=== PATIENT | female | born 1955 | race Caucasian/White ===

== ENCOUNTER → 2016-10-17 | Outpatient (CLI) | payer BC ==
--- NOTE | 2016-10-17 08:22 | US ---
EXAMINATION TYPE: US abdomen complete DATE OF EXAM: 10/17/2016 8:07 AM COMPARISON: Previous study dated 09/20/2015. CLINICAL HISTORY: R68.81 EARLY SATIETY,R63.0 ANOREXIA,R10.10 UPPER ABD PAIN. Gb removed. Mid and aman n EXAM MEASUREMENTS: Liver Length: 15.4cm Gallbladder Wall: surgically removed CBD:surgically removed Spleen: 10.3 cm Right Kidney: 9.8 x 4.8 x 4.9 cm Left Kidney: 9.5 x 5.0 x 5.0 cm TECHNOLOGIST IMPRESSION: surgically removed gb, large body habitus overlying bowel gas Pancreas: large body habitus, portions seen wnl Liver: wnl Gallbladder: surgically removed Evidence for sonographic Loo's sign: surgically removed CBD: wnl Spleen: wnl Right Kidney: wnl Left Kidney: cysts largest 2.9 x 1.6 x 1.7 cm medial , mid cyst 1.7 x 1.2 x 2.1 cm, 2.0 x 1.6x 1.9 cm Upper IVC: wnl portions seen Abd Aorta: wnl portions seen The pancreas is poorly visualized. The liver is normal in size without evidence of biliary dilatation. It is mildly echogenic and I coul d not exclude some fatty infiltration. The gallbladder is been removed. Distal common hepatic duct measures 4.2 mm. The spleen is normal in size. The right kidney is normal. There are multiple hypoechoic lesions involving the left kidney. These do not meet the requirements f or simple cysts. Visualized portions of the aorta and IVC are normal. IMPRESSION: 1. POOR VISUALIZATION OF THE PANCREAS. 2. PROBABLE FATTY INFILTRATION OF THE LIVER. 3. STATUS POST CHOLECYSTECTOMY. 4. MULTIPLE HYPOECHOIC LESIONS IN THE LEFT KIDNEY WHICH DO NOT MEET THE REQUIREMENTS OF A SIMPLE CYST . FURTHER IMAGING WITH CT OR MR WOULD BE SUGGESTED.
--- NOTE | 2016-10-21 11:12 | MM ---
Reason for exam: screening (asymptomatic). Last mammogram was performed 1 year and 1 month ago. Physical Findings: A clinical breast exam by your physician is recommended on an annual basis and results should be correlated with mammographic findings. MG 3D Screening Mammo W/Cad Bilateral CC and MLO view(s) were taken. Prior study comparison: September 18, 2015, bilateral MG 3d screening mammo w/cad. August 23, 2014, bilateral MG screening mammo w CAD. October 05, 2012, bilateral digital screening mammo w/CAD. The breast tissue is heterogeneously dense. This may lower the sensitivity of mammography. There is chronic nodularity in the right breast laterally at a middle depth. Asymmetric density anterior right breast just medial to the retroareolar plane appears more defined and incompletely disperses on tomosynthesis. ASSESSMENT: Incomplete: need additional imaging evaluation, BI-RAD 0 RECOMMENDATION: Special view mammogram of the right breast. If lesion persists on supplemental views, image directed ultrasound is recommended. [facility] will attempt to contact patient to return for supplemental views and ultrasound if indicated.
== END | disposition home or self-care (01) ==
LOC: RADMAMWWP 07:30
PROVIDERS: ATTEND Family Medicine
DX: Z12.31 Encounter for screening mammogram for malignant neoplasm of breast (principal); N28.89 Other specified disorders of kidney and ureter; Z90.49 Acquired absence of other specified parts of digestive tract
CPT/HCPCS: 77063; 76700; G0202

== ENCOUNTER → 2016-10-23 | Outpatient (CLI) | payer BC ==
--- NOTE | 2016-10-23 08:21 | MM ---
Reason for exam: additional evaluation requested from abnormal screening. Last mammogram was performed less than 1 month ago. Physical Findings: Nurse did not find any significant physical abnormalities on exam. MG 3D Work Up W/Cad RT ML, spot compression CC, and spot compression MLO view(s) were taken of the right breast. Prior study comparison: October 17, 2016, bilateral MG 3d screening mammo w/cad. September 18, 2015, bilateral MG 3d screening mammo w/cad. August 23, 2014, bilateral MG screening mammo w CAD. The breast tissue is heterogeneously dense. This may lower the sensitivity of mammography. The questioned asymmetric densities show no persistence on spot tomosynthesis images or on the true lateral view. These results were verbally communicated with the patient and result sheet given to the patient on 10/23/16. ASSESSMENT: Negative, BI-RAD 1 RECOMMENDATION: Return to routine screening mammogram schedule for both breasts.
== END | disposition home or self-care (01) ==
LOC: RADMAMWWP 07:32
PROVIDERS: ATTEND Family Medicine
DX: R92.8 Other abnormal and inconclusive findings on diagnostic imaging of breast (principal)
CPT/HCPCS: G0206; G0279

== ENCOUNTER → 2016-11-13 | Outpatient (CLI) | payer BC ==
--- NOTE | 2016-11-13 12:23 | MR ---
MR abdomen with and without contrast HISTORY: Early satiety, cystic kidney, abnormal liver function tests or graph correlation to ultrasou nd abdomen 17 October 2016 Multiplanar multisequence and postcontrast images obtained through the abdomen following 15 cc MultiH ance IV The gallbladder is absent. There is no retroperitoneal adenopathy. Signal loss on out of phase imagin g within the liver is compatible with fatty infiltration. The spleen is enlarged. Liver is also enlar ged. 3 cortical cysts are seen on the left, the largest is anteriorly at the mid pole and measures 3.3 cm, smaller cysts in the upper pole as noted on ultrasound. Largest cortical cyst in the mid pole recycling manager iorly of the right kidney measures 3.0 cm. The cysts show no abnormal enhancement and are showing sim ple fluid with no wall thickening. No hydronephrosis bilaterally. There are contents within the stoma ch. Pancreas is within normal limits. There are no pleural effusions or ascites. Aorta shows normal caliber and contour. No evident dissect ion. IMPRESSION: Fatty infiltration of the liver with hepatomegaly. Post cholecystectomy. Simple cysts wit hin the kidneys. Splenomegaly. Additional findings above, contents are present within the stomach.
== END | disposition home or self-care (01) ==
LOC: RADMRIMAIN 10:50
PROVIDERS: ATTEND Physician Assistant
DX: N28.1 Cyst of kidney, acquired (principal); K76.0 Fatty (change of) liver, not elsewhere classified; R16.0 Hepatomegaly, not elsewhere classified; R16.1 Splenomegaly, not elsewhere classified; Z90.49 Acquired absence of other specified parts of digestive tract
CPT/HCPCS: 74183; A9577

== ENCOUNTER 2017-03-04 16:24 | Emergency (ER) | payer BC, OTHER ==
[2017-03-04] MEDS ORDERED: MECLIZINE 12.5 MG TAB PO STA (17:06)
[2017-03-04] MEDS ORDERED: ONDANSETRON 4 MG/2 ML VIAL IVP STA (17:06)
[2017-03-04] MEDS ORDERED: SODIUM CHLORIDE 0.9% 1,000 ML IV ONE (17:06)
[2017-03-04 17:40] LABS: Basophils % (A) 1 %; CH 31.6; CHCM 35.2; Eosinophils % (A) 1 %; HCT 38.4 % (34.0-46.0); HDW 2.53; Luc # (Auto) 0.04; Luc % (Auto) 1; Lymphocytes # (A) 1.1 k/uL (1.0-4.8); Lymphocytes % (A) 24 %; MCH 32.9 pg (25.0-35.0); MCHC 36.4 g/dL (31.0-37.0); MCV 90.3 fL (80.0-100.0); Monocytes # (A) 0.2 k/uL (0-1.0); Monocytes % (A) 5 %; Neutrophils # (A) 3.2 k/uL (1.3-7.7); Neutrophils % (A) 69 %; RBC 4.25 m/uL (3.80-5.40); RDW 12.9 % (11.5-15.5); WBC 4.7 k/uL (3.8-10.6); WBC (Perox) 4.51
--- NOTE | 2017-03-04 17:48 | XR ---
EXAMINATION TYPE: XR chest 2V DATE OF EXAM: 03/04/2017 COMPARISON: NONE HISTORY: Pain and nausea TECHNIQUE: Frontal and lateral views of the chest are obtained. FINDINGS: There is no focal air space opacity, pleural effusion, or pneumothorax seen. The cardiac silhouette size is within normal limits. Surgical clips present in the right upper quadrant. The os seous structures are intact. IMPRESSION: No acute cardiopulmonary process.
[2017-03-04 17:55] LABS: INR 1.1 (<1.1); Partial Thromboplastin Time 23.5 sec (22.0-30.0); Prothrombin Time 10.7 sec (9.0-12.0)
[2017-03-04 17:59] LABS: Anion Gap 14 mmol/L; Blood Urea Nitrogen 14 mg/dL (7-17); Calcium 9.5 mg/dL (8.4-10.2); Carbon Dioxide 22 mmol/L (22-30); Chloride 98 mmol/L (98-107); Glucose 325 mg/dL (74-99); Magnesium 1.6 mg/dL (1.6-2.3); Non-African American GFR(MDRD) >60 (>60 ml/min/1.73 sqM); Potassium 4.1 mmol/L (3.5-5.1); Sodium 134 mmol/L (137-145)
--- NOTE | 2017-03-04 18:28 | CT ---
EXAMINATION TYPE: CT brain wo con DATE OF EXAM: 03/04/2017 COMPARISON: NONE HISTORY: Patient complains of dizziness and right side arm tingling. CT DLP: 1011 mGycm Automated exposure control for dose reduction was used. Helical imaging through the brain FINDINGS: There is no hemorrhage or hydrocephalus. Mild cortical atrophy is likely age-related. The calvarium i s intact. Cerebral vascular calcifications are present. Paranasal sinuses and mastoid air cells as vi sualized are normal. IMPRESSION: NO ACUTE ABNORMALITY EVIDENT. CONSIDER BRAIN MRI INDICATED
[2017-03-04 18:55] LABS: Appearance,Urine Clear (Clear); Bacteria,Urine Rare /hpf; Bilirubin,Urine Negative (Negative); Glucose,Urine (UA) 4+ (Negative); Ketones,Urine 1+ (Negative); Leukocyte Esterase,Urine Small (Negative); Mucus,Urine Rare /hpf; Nitrite,Urine Negative (Negative); PH, Urine 5.5 (5.0-8.0); Particle Count 2014; Protein,Urine Negative (Negative); RBC,Urine 1 /hpf (0-5); Specific Gravity,Urine 1.007 (1.001-1.035); Squamous Epithelial Cell,Urine <1 /hpf (0-4); UA Billing (MACRO vs. MICRO) MICRO; Urobilinogen,Urine <2.0 mg/dL (<2.0); WBC,Urine 4 /hpf (0-5)
--- NOTE | 2017-03-04 19:04 | ED ---
General Adult HPI - General Chief complaint: Dizziness Stated complaint: Nausea,Dizzy,Tingling Arm Time Seen by Provider: 03/04/17 16:44 Source: patient Mode of arrival: wheelchair Limitations: no limitations - History of Present Illness Initial comments: Patient is a 61-year-old female with past medical history of vertigo who presents to the emergency department this evening for evaluation of vertiginous- like symptoms. Patient reports she woke this morning and upon walking she felt very dizzy, room spinning sensation which is similar to previous episodes of vertigo. The patient reports she's been evaluated for vertigo in the past, she was given meclizine in emergency department it is never been prescribed meclizine. Patient reports that throughout the day she has continued to experience a spinning sensation, this is worse with any turning of her head. This afternoon she developed significant nausea and has been unable to tolerate any by mouth intake. She reports she began feeling as though her hands were tingling and decided she needed to come to the emergency department for further evaluation. She denies any headache, recent head trauma, recent upper respiratory infection , change in vision or hearing. She denies any chest pain or shortness of breath. She has no known cardiac history. at bedside expresses concern that she may be having a stroke and/or a heart attack given that he has read that women can have symptoms of arm discomfort or tingling in the hands with heart attack. - Related Data Home Medications Medication Instructions Recorded Confirmed metFORMIN HCL [Glucophage] 1,000 mg PO BID 08/11/14 03/04/17 Aspirin 81 mg PO HS 03/04/17 03/04/17 Krill/Om-3/Dha/Epa/Phospho/Ast 1 cap PO DAILY 03/04/17 03/04/17 [[place]-3 Krill Oil 300 mg Sfgl] Pravastatin Sodium [Pravachol] 40 mg PO HS 03/04/17 03/04/17 Previous Rx's Medication Instructions Recorded Meclizine [Antivert] 25 mg PO TID #30 tab 03/04/17 Allergies Allergy/AdvReac Type Severity Reaction Status Date / Time amoxicillin Allergy Rash/Hives Verified 03/04/17 17:02 Review of Systems ROS Statement: Those systems with pertinent positive or pertinent negative responses have been documented in the HPI. ROS Other: All systems not noted in ROS Statement are negative. Constitutional: Denies: fever, chills Eyes: Denies: vision change ENT: Denies: hearing loss, congestion Respiratory: Denies: cough, dyspnea Cardiovascular: Denies: chest pain, palpitations, dyspnea on exertion, edema Endocrine: Denies: fatigue Gastrointestinal: Reports: nausea. Denies: vomiting, diarrhea, constipation Genitourinary: Denies: dysuria Musculoskeletal: Denies: back pain Skin: Denies: rash, lesions Neurological: Reports: paresthesias (Right upper extremity pinky and ring finger ), vertigo. Denies: headache, numbness Psychiatric: Denies: anxiety, depression Hematological/Lymphatic: Denies: easy bleeding, easy bruising Past Medical History Past Medical History: Diabetes Mellitus, Hyperlipidemia Additional Past Medical History / Comment(s): vertigo History of Any Multi-Drug Resistant Organisms: None Reported Past Surgical History: Cholecystectomy Additional Past Surgical History / Comment(s): cataracts Past Psychological History: No Psychological Hx Reported Smoking Status: Never smoker Past Alcohol Use History: Rare Past Drug Use History: None Reported General Exam Limitations: no limitations General appearance: alert, in no apparent distress Head exam: Present: atraumatic, normocephalic, normal inspection Eye exam: Present: normal appearance, PERRL, EOMI, nystagmus (Horizontal nystagmus with any lateral head movement). Absent: scleral icterus, conjunctival injection, periorbital swelling ENT exam: Present: normal exam, mucous membranes moist, TM's normal bilaterally Neck exam: Present: normal inspection. Absent: tenderness, meningismus, lymphadenopathy Respiratory exam: Present: normal lung sounds bilaterally. Absent: respiratory distress, wheezes, rales, rhonchi, stridor Cardiovascular Exam: Present: regular rate, normal rhythm, normal heart sounds. Absent: systolic murmur, diastolic murmur, rubs, gallop, clicks GI/Abdominal exam: Present: soft, normal bowel sounds. Absent: distended, tenderness, guarding, rebound, rigid Rectal exam: Present: deferred Extremities exam: Present: normal inspection, full ROM, normal capillary refill. Absent: tenderness, pedal edema, joint swelling, calf tenderness Neurological exam: Present: alert, oriented X3, CN II-XII intact Psychiatric exam: Present: normal affect, normal mood Skin exam: Present: warm Course Vital Signs 03/04/17 03/04/17 16:33 19:31 Temperature 97.2 F L 98.1 F Pulse Rate 73 66 Respiratory 20 18 Rate Blood Pressure 150/67 135/63 O2 Sat by Pulse 99 97 Oximetry - Reevaluation(s) Reevaluation #1: Patient reevaluated, reports significant improvement in her dizziness and resolution of her nausea after medications and IV fluids As also discussed with the patient who states she feels very comfortable being discharged home with Antivert 03/04/17 18:52 EKG Findings - EKG Comments: EKG Findings:: EKG evaluated at 1714. EKG with a normal sinus rhythm, rate of 76 normal intervals. [place] is 172, QRS is 90 QTc is 459. There is no acute ST elevations or depressions. There is no evidence of acute ischemia or infarction Medical Decision Making - Medical Decision Making She was seen and evaluated, vital signs were reviewed straight up obtained from patient and at bedside Physical exam with horizontal nystagmus on lateral movement of the head consistent with his additional vertigo Neuro examination otherwise unremarkable, normal heel mario, normal finger-nose IV fluids and meclizine were ordered Thorough TIA and cardiac workup were ordered given patient's concern that she may be having a cardiac event or a stroke EKG was unremarkable Chest x-ray unremarkable CT head without acute findings Labs with mild hypochloremia hyponatremia consistent with decreased by mouth intake throughout the day Patient reevaluated after IV fluids and meclizine reports complete resolution of the nausea and significant improvement in the vertigo. Patient states she feels nearly at her baseline and is comfortable with plan for discharge home. I advised patient she needs follow-up with her primary care physician by the end of the week or return to the ED for any acute worsening or development of new or concerning symptoms. Patient and at bedside express understanding and agreement with plan - Lab Data Result diagrams: 03/04/17 17:25 03/04/17 17:25 Lab Results 03/04/17 03/04/17 03/04/17 Range/Units 17:25 17:25 17:25 WBC 4.7 (3.8-10.6) k/uL RBC 4.25 (3.80-5.40) m/uL Hgb 14.0 (11.4-16.0) gm/dL Hct 38.4 (34.0-46.0) % MCV 90.3 (80.0-100.0) fL MCH 32.9 (25.0-35.0) pg MCHC 36.4 (31.0-37.0) g/dL RDW 12.9 (11.5-15.5) % Plt Count 90 L (150-450) k/uL Neutrophils % 69 % Lymphocytes % 24 % Monocytes % 5 % Eosinophils % 1 % Basophils % 1 % Neutrophils # 3.2 (1.3-7.7) k/uL Lymphocytes # 1.1 (1.0-4.8) k/uL Monocytes # 0.2 (0-1.0) k/uL Eosinophils # 0.0 (0-0.7) k/uL Basophils # 0.0 (0-0.2) k/uL PT (9.0-12.0) sec INR (<1.1) APTT (22.0-30.0) sec Sodium 134 L (137-145) mmol/L Potassium 4.1 (3.5-5.1) mmol/L Chloride 98 (98-107) mmol/L Carbon Dioxide 22 (22-30) mmol/L Anion Gap 14 mmol/L BUN 14 (7-17) mg/dL Creatinine 0.47 L (0.52-1.04) mg/dL Est GFR (MDRD) Af Amer >60 (>60 ml/min/1.73 sqM) Est GFR (MDRD) Non-Af >60 (>60 ml/min/1.73 sqM) Glucose 325 H (74-99) mg/dL Plasma Lactic Acid Steve 1.4 (0.7-2.0) mmol/L Calcium 9.5 (8.4-10.2) mg/dL Magnesium 1.6 (1.6-2.3) mg/dL Troponin I (0.000-0.034) ng/mL NT-Pro-B Natriuret Pep pg/mL Urine Color Urine Appearance (Clear) Urine pH (5.0-8.0) Ur Specific [place] (1.001-1.035) Urine Protein (Negative) Urine Glucose (UA) (Negative) Urine Ketones (Negative) Urine Blood (Negative) Urine Nitrite (Negative) Urine Bilirubin (Negative) Urine Urobilinogen (<2.0) mg/dL Ur Leukocyte Esterase (Negative) Urine RBC (0-5) /hpf Urine WBC (0-5) /hpf Ur Squamous Epith Cells (0-4) /hpf Urine Bacteria (None) /hpf Urine Mucus (None) /hpf 03/04/17 03/04/17 03/04/17 Range/Units 17:25 17:25 17:25 WBC (3.8-10.6) k/uL RBC (3.80-5.40) m/uL Hgb (11.4-16.0) gm/dL Hct (34.0-46.0) % MCV (80.0-100.0) fL MCH (25.0-35.0) pg MCHC (31.0-37.0) g/dL RDW (11.5-15.5) % Plt Count (150-450) k/uL Neutrophils % % Lymphocytes % % Monocytes % % Eosinophils % % Basophils % % Neutrophils # (1.3-7.7) k/uL Lymphocytes # (1.0-4.8) k/uL Monocytes # (0-1.0) k/uL Eosinophils # (0-0.7) k/uL Basophils # (0-0.2) k/uL PT 10.7 (9.0-12.0) sec INR 1.1 (<1.1) APTT 23.5 (22.0-30.0) sec Sodium (137-145) mmol/L Potassium (3.5-5.1) mmol/L Chloride (98-107) mmol/L Carbon Dioxide (22-30) mmol/L Anion Gap mmol/L BUN (7-17) mg/dL Creatinine (0.52-1.04) mg/dL Est GFR (MDRD) Af Amer (>60 ml/min/1.73 sqM) Est GFR (MDRD) Non-Af (>60 ml/min/1.73 sqM) Glucose (74-99) mg/dL Plasma Lactic Acid Steve (0.7-2.0) mmol/L Calcium (8.4-10.2) mg/dL Magnesium (1.6-2.3) mg/dL Troponin I <0.012 (0.000-0.034) ng/mL NT-Pro-B Natriuret Pep 15 pg/mL Urine Color Urine Appearance (Clear) Urine pH (5.0-8.0) Ur Specific [place] (1.001-1.035) Urine Protein (Negative) Urine Glucose (UA) (Negative) Urine Ketones (Negative) Urine Blood (Negative) Urine Nitrite (Negative) Urine Bilirubin (Negative) Urine Urobilinogen (<2.0) mg/dL Ur Leukocyte Esterase (Negative) Urine RBC (0-5) /hpf Urine WBC (0-5) /hpf Ur Squamous Epith Cells (0-4) /hpf Urine Bacteria (None) /hpf Urine Mucus (None) /hpf 03/04/17 Range/Units 18:31 WBC (3.8-10.6) k/uL RBC (3.80-5.40) m/uL Hgb (11.4-16.0) gm/dL Hct (34.0-46.0) % MCV (80.0-100.0) fL MCH (25.0-35.0) pg MCHC (31.0-37.0) g/dL RDW (11.5-15.5) % Plt Count (150-450) k/uL Neutrophils % % Lymphocytes % % Monocytes % % Eosinophils % % Basophils % % Neutrophils # (1.3-7.7) k/uL Lymphocytes # (1.0-4.8) k/uL Monocytes # (0-1.0) k/uL Eosinophils # (0-0.7) k/uL Basophils # (0-0.2) k/uL PT (9.0-12.0) sec INR (<1.1) APTT (22.0-30.0) sec Sodium (137-145) mmol/L Potassium (3.5-5.1) mmol/L Chloride (98-107) mmol/L Carbon Dioxide (22-30) mmol/L Anion Gap mmol/L BUN (7-17) mg/dL Creatinine (0.52-1.04) mg/dL Est GFR (MDRD) Af Amer (>60 ml/min/1.73 sqM) Est GFR (MDRD) Non-Af (>60 ml/min/1.73 sqM) Glucose (74-99) mg/dL Plasma Lactic Acid Steve (0.7-2.0) mmol/L Calcium (8.4-10.2) mg/dL Magnesium (1.6-2.3) mg/dL Troponin I (0.000-0.034) ng/mL NT-Pro-B Natriuret Pep pg/mL Urine Color Colorless Urine Appearance Clear (Clear) Urine pH 5.5 (5.0-8.0) Ur Specific [place] 1.007 (1.001-1.035) Urine Protein Negative (Negative) Urine Glucose (UA) 4+ H (Negative) Urine Ketones 1+ H (Negative) Urine Blood Negative (Negative) Urine Nitrite Negative (Negative) Urine Bilirubin Negative (Negative) Urine Urobilinogen <2.0 (<2.0) mg/dL Ur Leukocyte Esterase Small H (Negative) Urine RBC 1 (0-5) /hpf Urine WBC 4 (0-5) /hpf Ur Squamous Epith Cells <1 (0-4) /hpf Urine Bacteria Rare H (None) /hpf Urine Mucus Rare H (None) /hpf Disposition Clinical Impression: Vertigo Disposition: HOME SELF-CARE Condition: Good Instructions: Vertigo (ED), Dizziness (ED) Prescriptions: Meclizine [Antivert] 25 mg PO TID #30 tab Referrals: aSndra Davila III, MD [Primary Care Provider] - 1-2 days
[2017-03-04 19:36] VITALS: BP 135/63; PULSE 66; RESP 18; TEMP 98.1
== END 2017-03-04 19:32 | disposition home or self-care (01) ==
LOC: EC 16:24
DX: E87.1 Hypo-osmolality and hyponatremia (principal); E87.8 Other disorders of electrolyte and fluid balance, not elsewhere classified; R42 Dizziness and giddiness; R11.0 Nausea; R20.2 Paresthesia of skin; H55.09 Other forms of nystagmus; E78.5 Hyperlipidemia, unspecified; E11.9 Type 2 diabetes mellitus without complications; Z79.82 Long term (current) use of aspirin; Z79.84 Long term (current) use of oral hypoglycemic drugs; Z79.899 Other long term (current) drug therapy; Z88.0 Allergy status to penicillin
CPT/HCPCS: 36415; 93005; 83880; 80048; 83605; 83735; 84484; 85025; 85610; 85730; 81001; 71020; 70450; 99284; 96365; 96375; J2405

== ENCOUNTER → 2017-11-03 | Outpatient (CLI) | payer OTHER ==
--- NOTE | 2017-11-05 08:50 | MM ---
Reason for exam: screening (asymptomatic). Last mammogram was performed 1 year ago. Physical Findings: A clinical breast exam by your physician is recommended on an annual basis and results should be correlated with mammographic findings. MG 3D Screening Mammo W/Cad Bilateral CC and MLO view(s) were taken. Prior study comparison: October 23, 2016, right breast MG 3d work up w/cad RT. October 17, 2016, bilateral MG 3d screening mammo w/cad. The breast tissue is heterogeneously dense. This may lower the sensitivity of mammography. No significant changes when compared with prior studies. ASSESSMENT: Benign, BI-RAD 2 RECOMMENDATION: Routine screening mammogram of both breasts in 1 year.
== END | disposition home or self-care (01) ==
LOC: RADMAMWWP 16:52
PROVIDERS: ATTEND Family Medicine
DX: Z12.31 Encounter for screening mammogram for malignant neoplasm of breast (principal)
CPT/HCPCS: 77063; 77067

== ENCOUNTER → 2018-11-24 | Outpatient (CLI) | payer OTHER ==
--- NOTE | 2018-11-26 11:39 | MM ---
Reason for exam: screening (asymptomatic). Last mammogram was performed 1 year and 1 month ago. History: Patient is postmenopausal. Physical Findings: A clinical breast exam by your physician is recommended on an annual basis and results should be correlated with mammographic findings. MG 3D Screening Mammo W/Cad Bilateral CC and MLO view(s) were taken. Prior study comparison: November 03, 2017, bilateral MG 3d screening mammo w/cad. October 23, 2016, right breast MG 3d work up w/cad RT. The breast tissue is heterogeneously dense. This may lower the sensitivity of mammography. Finding: There are typically benign round, diffuse/scattered calcifications in both breasts. There is a chronic nodularity in the right breast. No significant changes in finding since November 03, 2017 and October 23, 2016. ASSESSMENT: Benign, BI-RAD 2 RECOMMENDATION: Routine screening mammogram of both breasts in 1 year.
== END | disposition home or self-care (01) ==
LOC: RADMAMWWP 16:37
PROVIDERS: ATTEND Family Medicine
DX: Z12.31 Encounter for screening mammogram for malignant neoplasm of breast (principal)
CPT/HCPCS: 77063; 77067

== ENCOUNTER 2019-02-25 23:04 | Emergency (ER) | payer OTHER ==
[2019-02-25 23:17] VITALS: TEMP 98.3
[2019-02-25] MEDS ORDERED: diphenhydrAMINE 50 MG/ML 1 ML VIAL IVP STA (23:36)
[2019-02-25] MEDS ORDERED: methylPREDNISolone SOD SUCCI 125 MG/2 ML VIAL IV STA (23:36)
[2019-02-25] MEDS ORDERED: FAMOTIDINE 20 MG/2 ML VIAL IV STA (23:36)
[2019-02-25] MEDS ORDERED: SODIUM CHLORIDE 0.9% 500 ML 500 ML IV ONE (23:36)
--- NOTE | 2019-02-26 00:16 | ED ---
Allergic Reaction HPI - General Chief complaint: Allergic Reaction Stated complaint: Allergic Reaction Time Seen by Provider: 02/25/19 23:24 Source: patient, family, RN notes reviewed, old records reviewed Mode of arrival: ambulatory Limitations: no limitations - History of Present Illness Initial Comments: Patient is a 63 year old female whom presents today for hives, and reports worsening hives over neck and face. She denies new exposures. She denies tongue swelling or difficulty breathing. Reports that her reaction may be related to you applying sunblock. She reports that she is using sunblock in the past. - Related Data Home Medications Medication Instructions Recorded Confirmed metFORMIN HCL [Glucophage] 1,000 mg PO BID 08/11/14 03/04/17 Aspirin 81 mg PO HS 03/04/17 03/04/17 Krill/Om-3/Dha/Epa/Phospho/Ast 1 cap PO DAILY 03/04/17 03/04/17 [[place]-3 Krill Oil 300 mg Sfgl] Pravastatin Sodium [Pravachol] 40 mg PO HS 03/04/17 03/04/17 Previous Rx's Medication Instructions Recorded Meclizine [Antivert] 25 mg PO TID #30 tab 03/04/17 Famotidine [Pepcid] 20 mg PO BID #20 tablet 02/26/19 diphenhydrAMINE [Benadryl] 25 mg PO QID PRN #20 capsule 02/26/19 predniSONE 10 mg PO DAILY #15 tab 02/26/19 Allergies Allergy/AdvReac Type Severity Reaction Status Date / Time amoxicillin Allergy Rash/Hives Verified 02/25/19 23:18 Review of Systems ROS Statement: Those systems with pertinent positive or pertinent negative responses have been documented in the HPI. ROS Other: All systems not noted in ROS Statement are negative. Past Medical History Past Medical History: Diabetes Mellitus, Hyperlipidemia Additional Past Medical History / Comment(s): vertigo History of Any Multi-Drug Resistant Organisms: None Reported Past Surgical History: Cholecystectomy Additional Past Surgical History / Comment(s): cataracts Past Psychological History: No Psychological Hx Reported Smoking Status: Former smoker Past Alcohol Use History: Rare Past Drug Use History: None Reported General Exam - General Exam Comments Initial Comments: Pleasant 63 year old female, no distress. Limitations: no limitations General appearance: alert, in no apparent distress Head exam: Present: atraumatic, normocephalic, normal inspection Eye exam: Present: normal appearance, PERRL, EOMI. Absent: scleral icterus, conjunctival injection, periorbital swelling ENT exam: Present: normal exam, mucous membranes moist Neck exam: Present: normal inspection. Absent: tenderness, meningismus, lymphadenopathy Respiratory exam: Present: normal lung sounds bilaterally. Absent: respiratory distress, wheezes, rales, rhonchi, stridor Cardiovascular Exam: Present: regular rate, normal rhythm, normal heart sounds. Absent: systolic murmur, diastolic murmur, rubs, gallop, clicks GI/Abdominal exam: Present: soft, normal bowel sounds. Absent: distended, tende rness, guarding, rebound, rigid Extremities exam: Present: normal inspection, full ROM, normal capillary refill. Absent: tenderness, pedal edema, joint swelling, calf tenderness Back exam: Present: normal inspection Skin exam: Present: warm, dry, intact, normal color, urticaria (hives over arms, chest, back and neck. ). Absent: rash Course Vital Signs 02/25/19 02/26/19 23:13 00:29 Temperature 98.3 F Pulse Rate 98 72 Respiratory 18 19 Rate Blood Pressure 162/97 129/79 O2 Sat by Pulse 97 72 L Oximetry Medical Decision Making - Medical Decision Making 63 year old female for hives and allergic reaction, likely to sunblock. Given IV solumedrol, benadryl, and pepcid. Hives have diminished, no sign of respiratory distress or angioedema. Will DC with Rx for prednisone. Discussed patient follow up with PCP and to avoid new exposures. Patient understands treatment plan and will comply. Disposition Clinical Impression: Urticaria Disposition: HOME SELF-CARE Condition: Good Instructions (If sedation given, give patient instructions): Urticaria (ED), General Allergic Reaction (ED) Additional Instructions: Take the medication as prescribed. Monitor for any signs of difficulty breathing. Patient should avoid hot showers's that we'll make the hives worse. Take the steroids for the next 5 days as prescribed. Prescriptions: diphenhydrAMINE [Benadryl] 25 mg PO QID PRN #20 capsule PRN Reason: Itching Famotidine [Pepcid] 20 mg PO BID #20 tablet predniSONE 10 mg PO DAILY #15 tab Is patient prescribed a controlled substance at d/c from ED?: No Referrals: Sandra Davila III, MD [Primary Care Provider] - 1-2 days Time of Disposition: 00:13
[2019-02-26 00:30] VITALS: BP 129/79; PULSE 72; RESP 19
== END 2019-02-26 00:29 | disposition home or self-care (01) ==
LOC: EC 23:04
DX: L50.0 Allergic urticaria (principal); E11.9 Type 2 diabetes mellitus without complications; E78.5 Hyperlipidemia, unspecified; Z87.891 Personal history of nicotine dependence; Z88.0 Allergy status to penicillin; Z79.82 Long term (current) use of aspirin; Z79.84 Long term (current) use of oral hypoglycemic drugs; Z79.899 Other long term (current) drug therapy
CPT/HCPCS: 99283; 96374; 96375 ×2; 96361; J1200; J2930

== ENCOUNTER → 2019-06-01 | Outpatient (CLI) | payer OTHER ==
--- NOTE | 2019-06-01 11:02 | US ---
EXAMINATION TYPE: US abdomen complete DATE OF EXAM: 06/01/2019 COMPARISON: Abdominal ultrasound dated 10/17/2016 CLINICAL HISTORY: R94.5 ABN LIVER FUNCTIONS. EXAM MEASUREMENTS: Liver Length: 16.3 cm Gallbladder Wall: Surgically absent CBD: 0.5 cm Spleen: 13.4 cm Right Kidney: 10.1 x 4.6 x 4.9 cm Left Kidney: 9.6 x 6.5 x 5.2 cm Pancreas: partially obscured by bowel gas, portions visualized wnl Liver: There is increased echogenicity of the hepatic parenchyma with diminished visualization of th e portal triads most commonly relating to hepatic steatosis and limiting evaluation for underlying he patic masses. Gallbladder: Surgically absent Evidence for sonographic Loo's sign: No CBD: wnl Spleen: Approaches criteria for splenomegaly. Right Kidney: cyst measuring 2.5 x 2.8 x 2.6cm Left Kidney: cyst measuring 2.2 x 3.5 x 2.4cm Upper IVC: wnl Abd Aorta: partially obscured by bowel gas, portions visualized wnl The intrahepatic portion of the IVC and proximal abdominal aorta are within normal limits. Common braulio e duct is unremarkable. The visualized portions of the pancreas are homogenous. The spleen is upper limits of normal size. Kidneys are symmetric and free of hydronephrosis. No suspicious renal lesio ns are seen. IMPRESSION: 1. Sonographic findings most commonly related to hepatic steatosis. Correlate with liver function cinthya t results. 2. Spleen approaches criteria for splenomegaly measuring 13.47 m. 3. Partial obscuration of the aorta and pancreas. Surgical absence of the gallbladder. 4. Bilateral renal cysts.
== END | disposition home or self-care (01) ==
LOC: RADUSWWP 09:19
PROVIDERS: ATTEND Family Medicine
DX: K76.0 Fatty (change of) liver, not elsewhere classified (principal); R16.1 Splenomegaly, not elsewhere classified; Z90.49 Acquired absence of other specified parts of digestive tract; N28.1 Cyst of kidney, acquired; K86.89 Other specified diseases of pancreas
CPT/HCPCS: 76700

== ENCOUNTER → 2020-03-13 | Outpatient (CLI) | payer OTHER ==
--- NOTE | 2020-03-13 09:46 | BD ---
EXAMINATION TYPE: Axial Bone Density DATE OF EXAM: 03/13/2020 COMPARISON: NONE CLINICAL HISTORY: Height: 61.5 IN Weight: 181 LBS RISK FACTORS HISTORY OF: Active: YES Diet low in dairy products/other sources of calcium: YES Postmenopausal woman: AGE 55 MEDICATIONS: Additional Medications: VIT D, METFORMIN, PRAVASTATIN,ACTOS,DIABETES MED EXAM MEASUREMENTS: Bone mineral densitometry was performed using the [employer] System. Bone mineral density as measured about the Lumbar spine is: ----- L1-L4(G/cm2): 1.140 T Score Values are as follows: ----- L2: -1.1 ----- L3: 0.1 ----- L4: 0.3 ----- L1-L4: -0.3 Bone mineral density BASELINE Bone mineral density about the R hip (g/cm2): 0.926 Bone mineral density about the L hip (g/cm2): 0.906 T Score values are as follows: -----R Neck: -0.8 -----L Neck: -0.9 -----R Total: 0.1 -----L Total: 0.1 Bone mineral density BASELINE IMPRESSION: Normal (Values between +1 and -1 indicate normal bone mass). Consider repeating this study in 5 year s or sooner if there is some new clinical indication. Borderline osteopenia detected just within the L2 vertebral body NOTE: T-SCORE=SD OF THE YOUNG ADULT MEAN.
--- NOTE | 2020-03-15 07:43 | MM ---
Reason for exam: screening (asymptomatic). Last mammogram was performed 1 year and 4 months ago. History: Patient is postmenopausal. Physical Findings: A clinical breast exam by your physician is recommended on an annual basis and results should be correlated with mammographic findings. MG 3D Screening Mammo W/Cad Bilateral CC and MLO view(s) were taken. Prior study comparison: November 24, 2018, bilateral MG 3d screening mammo w/cad. November 03, 2017, bilateral MG 3d screening mammo w/cad. The breast tissue is heterogeneously dense. This may lower the sensitivity of mammography. No significant changes when compared with prior studies. ASSESSMENT: Benign, BI-RAD 2 RECOMMENDATION: Routine screening mammogram of both breasts in 1 year.
== END | disposition home or self-care (01) ==
LOC: RADMAMWWP 08:02
PROVIDERS: ATTEND Family Medicine
DX: Z12.31 Encounter for screening mammogram for malignant neoplasm of breast (principal); Z13.820 Encounter for screening for osteoporosis; M85.88 Other specified disorders of bone density and structure, other site
CPT/HCPCS: 77063; 77067; 77080

== ENCOUNTER → 2021-04-03 | Outpatient (CLI) | payer OTHER ==
--- NOTE | 2021-04-05 11:23 | MM ---
Reason for exam: screening (asymptomatic). Last mammogram was performed 1 year and 1 month ago. History: Patient is postmenopausal. Physical Findings: A clinical breast exam by your physician is recommended on an annual basis and results should be correlated with mammographic findings. MG 3D Screening Mammo W/Cad Bilateral CC and MLO view(s) were taken. Prior study comparison: March 13, 2020, bilateral MG 3d screening mammo w/cad. November 24, 2018, bilateral MG 3d screening mammo w/cad. The breast tissue is heterogeneously dense. This may lower the sensitivity of mammography. No significant changes when compared with prior studies. ASSESSMENT: Benign, BI-RAD 2 RECOMMENDATION: Routine screening mammogram of both breasts in 1 year.
== END | disposition home or self-care (01) ==
LOC: RADMAMWWP 12:47
PROVIDERS: ATTEND Family Medicine
DX: Z12.31 Encounter for screening mammogram for malignant neoplasm of breast (principal); Z78.0 Asymptomatic menopausal state
CPT/HCPCS: 77063; 77067

== ENCOUNTER → 2022-04-10 | Outpatient (CLI) | payer BC ==
--- NOTE | 2022-04-11 07:56 | MM ---
Reason for Exam: Screening (asymptomatic). Last screening mammogram was performed 12 month(s) ago. Patient History: Menarche at age 14. First Full-Term at age 24. Postmenopausal. Risk Values: Kathy 5 year model risk: 1.4%. NCI Lifetime model risk: 5.8%. Prior Study Comparison: 11/24/2018 Bilateral Screening Mammogram, [facility]. 03/13/2020 Bilateral Screening Mammogram, [facility]. 04/03/2021 Bilateral Screening Mammogram, [facility]. Tissue Density: The breast tissue is heterogeneously dense. This may lower the sensitivity of mammography. Findings: Analyzed By CAD. There is no suspicious group of microcalcifications or new suspicious mass in either breast. Stable benign calcifications. Overall Assessment: Benign, BI-RAD 2 Management: Screening Mammogram of both breasts in 1 year. A clinical breast exam by your physician is recommended on an annual basis and results should be correlated with mammographic findings. Electronically signed and approved by: Carmelo Gallo M.D. Radiologis
== END | disposition home or self-care (01) ==
LOC: RADMAMWWP 10:05
PROVIDERS: ATTEND Family Medicine
DX: Z12.31 Encounter for screening mammogram for malignant neoplasm of breast (principal); Z78.0 Asymptomatic menopausal state
CPT/HCPCS: 77063; 77067

== ENCOUNTER → 2023-04-21 | Outpatient (CLI) | payer MEDICARE ==
--- NOTE | 2023-04-22 10:44 | MM ---
Reason for Exam: Screening (asymptomatic). Last screening mammogram was performed 12 month(s) ago. Patient History: Menarche at age 14. First Full-Term at age 24. Postmenopausal. Risk Values: Kathy 5 year model risk: 1.5%. NCI Lifetime model risk: 5.6%. Prior Study Comparison: 03/13/2020 Bilateral Screening Mammogram, [facility]. 04/03/2021 Bilateral Screening Mammogram, [facility]. 04/10/2022 Bilateral MG 3D screening mammo w/cad, [facility]. Tissue Density: The breast tissue is heterogeneously dense. This may lower the sensitivity of mammography. Findings: Analyzed By CAD. Benign-appearing calcifications bilaterally. There is no suspicious group of microcalcifications or new suspicious mass in either breast. Overall Assessment: Benign, BI-RAD 2 Management: Screening Mammogram of both breasts in [address] [facility] will attempt to contact patient to return for supplemental views and ultrasound if indicated. Patient should continue monthly self-breast exams. A clinical breast exam by your physician is recommended on an annual basis. This exam should not preclude additional follow-up of suspicious palpable abnormalities. Note on Kathy scores and lifetime risk: 1. A Kathy score greater than 3% is considered moderate risk. If this is the case, consider specialist referral to assess eligibility for a risk reducing agent. 2. If overall lifetime risk for the development of breast cancer is 20% or higher, the patient may qualify for future screening with alternating mammogram and breast MRI. Electronically signed and approved by: Gil Patterson DO
== END | disposition home or self-care (01) ==
LOC: RADMAMWWP 08:04
PROVIDERS: ATTEND Family Medicine
DX: Z12.31 Encounter for screening mammogram for malignant neoplasm of breast (principal); Z78.0 Asymptomatic menopausal state
CPT/HCPCS: 77063; 77067

== ENCOUNTER → 2024-05-26 | Outpatient (CLI) | payer MEDICARE ==
--- NOTE | 2024-05-26 11:56 | BD ---
EXAMINATION TYPE: Axial Bone Density DATE OF EXAM: 05/26/2024 CLINICAL HISTORY: 68 years old Female. ICD-10 CODE: Z78.0 ASYMP [place] Height: 61" Weight: 176lbs FRAX RISK QUESTIONS: Alcohol (3 or more units per day): No Family History (Parent hip fracture): No Glucocorticoids (More than 3mos): No (Ex: prednisone, prednisolone, methylprednisolone, dexamethasone, and hydrocortisone). History of Fracture in Adulthood: No Secondary Osteoporosis: 1. Type 1 Diabetes: No 2. Hyperthyroidism: No 3. Menopause before 45: No 4. Malnutrition: No 5. Chronic liver disease: No Rheumatoid Arthritis: No Current Tobacco Use: No RISK FACTORS HISTORY OF: Hip Fracture (Right/Left): No Spine Fracture: No History of Wrist Fracture: No Surgery to Spine/Hip(right/left)/Wrist (right/left): No MEDICATIONS: Thyroid Medications: No Osteoporosis Medications: No EXAM MEASUREMENTS: Bone mineral densitometry was performed using the [employer] System. Bone mineral density as measured about the Lumbar spine is: ----- L1-L4(G/cm2): 1.148 T Score Values are as follows: ----- L1: -1.6 ----- L2: -1.8 ----- L3: 0.5 ----- L4: 1.5 ----- L1-L4: -0.3 Z Score Values are as follows: ----- L1: -0.5 ----- L2: -0.7 ----- L3: 1.6 ----- L4: 2.6 ----- L1-L4: 0.9 Bone mineral density has: increased 0.7% since study of: 03/13/2020 Bone mineral density about the R hip (g/cm2): 1.012 Bone mineral density about the L hip (g/cm2): 1.011 T Score values are as follows: -----R Neck: -0.9 -----L Neck: -1.1 -----R Total: 0.0 -----L Total: 0.0 Z Score values are as follows: -----R Neck: 0.4 -----L Neck: 0.1 -----R Total: 1.0 -----L Total: 1.0 Bone mineral density has: decreased -1.1% since study of: 03/13/2020 FRAX%s: The graph provided illustrates a 8.0% chance for a major osteoporotic fx and a 0.7% chance fo r the hips probability for fx in 10 years time. IMPRESSION: Normal (Values between +1 and -1 indicate normal bone mass). Consider repeating this study in 5 year s or sooner if there is some new clinical indication. NOTE: T-SCORE=SD OF THE YOUNG ADULT MEAN. [facility], , 05/26/2024 11:54 AM
--- NOTE | 2024-05-27 14:19 | MM ---
Reason for Exam: Screening (asymptomatic). Last mammogram was performed 1 year(s) and 2 month(s) ago. Patient History: Menarche at age 14. First Full-Term at age 24. Postmenopausal. Risk Values: Kathy 5 year model risk: 1.5%. NCI Lifetime model risk: 5.4%. Prior Study Comparison: 04/03/2021 Bilateral Screening Mammogram, [facility]. 04/10/2022 Bilateral MG 3D screening mammo w/cad, [facility]. 04/21/2023 Bilateral MG 3D screening mammo w/cad, [facility]. Tissue Density: The breasts are heterogeneously dense, which may obscure small masses. Findings: Analyzed By CAD. Right breast: There is no suspicious group of microcalcifications or new suspicious mass. Benign-appearing calcifications right breast. Left breast: There is no suspicious group of microcalcifications or new suspicious mass. Benign-appearing calcifications left breast. Overall Assessment: Benign, BI-RAD 2 Management: Screening Mammogram of both breasts in [address] [facility] will attempt to contact patient to return for supplemental views and ultrasound if indicated. Patient should continue monthly self-breast exams. A clinical breast exam by your physician is recommended on an annual basis. This exam should not preclude additional follow-up of suspicious palpable abnormalities. Note on Kathy scores and lifetime risk: 1. A Kathy score greater than 3% is considered moderate risk. If this is the case, consider specialist referral to assess eligibility for a risk reducing agent. 2. If overall lifetime risk for the development of breast cancer is 20% or higher, the patient may qualify for future screening with alternating mammogram and breast MRI. [facility], , 05/27/2024 2:16 PM. Electronically signed and approved by: Gil Patterson DO
== END | disposition home or self-care (01) ==
LOC: RADMAMWWP 10:04
PROVIDERS: ATTEND Family Medicine
CPT/HCPCS: 77063; 77067; 77080